=== PATIENT | female | born 1995 | race Caucasian/White ===

== ENCOUNTER 2023-08-05 15:46 | Emergency (ER) | payer MEDICAID ==
[~2023-08-05] VITALS: Ht 162.6 cm; Wt 61.0 kg
[2023-08-05 16:12] VITALS: BP 104/65; PULSE 81; RESP 18; TEMP 98.3; O2SAT 100
[2023-08-05 20:40] LABS: CLARITY URINE CLEAR (CLEAR); COLOR URINE YELLOW (YELLOW); GLUCOSE URINE NEGATIVE (NEGATIVE); KETONES URINE NEGATIVE (NEGATIVE); LEUKOCYTE ESTERASE URINE NEGATIVE (NEGATIVE); NITRITE URINE NEGATIVE (NEGATIVE); OCCULT BLOOD URINE NEGATIVE (NEGATIVE); PH URINE 6.5 (4.5-8.0); PROTEIN URINE NEGATIVE (NEGATIVE); SPECIFIC GRAVITY URINE 1.026 (1.005-1.030)
== END 2023-08-06 00:31 | disposition left against medical advice (07) ==
LOC: ER 15:46
DX: R07.9 Chest pain, unspecified (principal); Z53.21 Procedure and treatment not carried out due to patient leaving prior to being seen by health care provider
CPT/HCPCS: 71045; 81003; 81025; 93005; 99281